=== PATIENT | female | born 1980 | race Caucasian/White ===

== ENCOUNTER 2016-06-04 16:04 | Emergency (ER) | payer OTHER ==
[2016-06-04] MEDS ORDERED: PROMETHAZINE 25 MG/ML VIAL ONE ×2 (17:56→17:58)
[2016-06-04] MEDS ORDERED: SODIUM CHLORIDE 0.9% 1,000 ML ONE ×2 (17:57→17:58)
== END 2016-06-04 19:11 | disposition home or self-care (01) ==
LOC: ER 16:04
DX: O99.612 Diseases of the digestive system complicating pregnancy, second trimester (principal); K80.70 Calculus of gallbladder and bile duct without cholecystitis without obstruction; Z3A.15 15 weeks gestation of pregnancy
CPT/HCPCS: 36415; 76705; 76815; 80053; 81001; 84702; 85025; 86901; 87491; 87591; 87800; 96361; 96374